=== PATIENT | female | born 1985 | race Caucasian/White ===

== ENCOUNTER 2020-04-10 09:58 | Emergency (ER) | payer MEDICAID, SELFPAY ==
[~2020-04-10] VITALS: Ht 154.9 cm; Wt 53.8 kg
[2020-04-10] MEDS ORDERED: PREN1TAB18 PO (10:23)
[2020-04-10 11:25] LABS: BASO # 0.1 10^3/uL (0.0-0.2); EOS # 0.3 10^3/uL (0.0-0.5); EOS % 2.8 % (0.0-3.0); HEMATOCRIT 40.2 % (36.0-47.0); HEMOGLOBIN 12.9 g/dl (12.0-15.5); LYMPH # 1.9 10^3/uL (1.5-5.0); LYMPH % 20.8 % (24.0-44.0); MEAN CORPUSCULAR HEMOGLOBIN 28.7 pg (27.0-33.0); MEAN CORPUSCULAR HGB CONC 32.1 g/dl (32.0-36.5); MEAN CORPUSCULAR VOLUME 89.5 fl (80.0-96.0); MONO # 0.6 10^3/uL (0.0-0.8); MONO % 6.7 % (0.0-5.0); NEUTROPHILS # 6.4 10^3/uL (1.5-8.5); NEUTROPHILS % 68.5 % (36.0-66.0); PLATELET COUNT, AUTOMATED 401 10^3/uL (150-450); RED BLOOD COUNT 4.49 10^6/uL (4.00-5.40); WHITE BLOOD COUNT 9.3 10^3/uL (4.0-10.0)
--- NOTE | 2020-04-10 12:06 | REP ---
INDICATION: vag bleeding, pelvic cramping 9 weeks. COMPARISON: None TECHNIQUE: Transvesical and transvaginal imaging FINDINGS: The uterus measures 8.5 x 5.9 x 6.2 cm. Within the endometrial cavity there is an oval-shaped collection of fluid with partial increased echoes surrounding it. Doppler of the structure shows no cardiac activity. There is no pole. The mean diameter of this structure is 13.7 mm. There is no free fluid in the pelvis. The right ovary measures 3.5 x 2.6 x 2.7 cm and is within normal limits. Left ovary measures 2.7 x 0.9 x 1.6 cm and is within normal limits. IMPRESSION: Possible gestational sac or possible blighted ovum as described above. The measurements are consistent with a 6 week 1 day gestational age. With no pole, yolk sac, or cardiac activity noted the diagnosis of cannot be made at this time. Follow-up is recommended. <Electronically signed by Josh Beevrly > 04/10/20 [id number]
[2020-04-10 12:21] LABS: BLOOD UREA NITROGEN 6 MG/DL (7-18); CALCIUM LEVEL 9.5 MG/DL (8.5-10.1); CARBON DIOXIDE LEVEL 26 MEQ/L (21-32); CHLORIDE LEVEL 103 MEQ/L (98-107); GLOMERULAR FILTRATION RATE > 60.0 (>60); GLUCOSE, FASTING 93 MG/DL (70-100); HCG, SERUM QUANTITATIVE 6079 MIU/ML; POTASSIUM SERUM 3.6 MEQ/L (3.5-5.1); SODIUM LEVEL 137 MEQ/L (136-145)
[2020-04-10 13:16] VITALS: BP 119/61
== END 2020-04-10 13:22 | disposition home or self-care (01) ==
LOC: M ED 09:58
DX: O20.0 Threatened abortion (principal); Z3A.01 Less than 8 weeks gestation of pregnancy

== ENCOUNTER 2020-04-11 19:27 | Emergency (ER) | payer MEDICAID, SELFPAY ==
[~2020-04-11] VITALS: Ht 154.9 cm; Wt 53.6 kg
[~2020-04-11 19:27] MED LIST: PREN1TAB18 PO
[2020-04-11 20:28] LABS: BASO # 0.1 10^3/uL (0.0-0.2); BASO % 0.6 % (0.0-1.0); EOS # 0.4 10^3/uL (0.0-0.5); EOS % 4.2 % (0.0-3.0); HEMATOCRIT 38.2 % (36.0-47.0); HEMOGLOBIN 12.1 g/dl (12.0-15.5); LYMPH # 2.8 10^3/uL (1.5-5.0); MEAN CORPUSCULAR HEMOGLOBIN 28.2 pg (27.0-33.0); MEAN CORPUSCULAR HGB CONC 31.7 g/dl (32.0-36.5); MONO # 0.9 10^3/uL (0.0-0.8); MONO % 8.7 % (0.0-5.0); NEUTROPHILS # 5.7 10^3/uL (1.5-8.5); NEUTROPHILS % 58.2 % (36.0-66.0); PLATELET COUNT, AUTOMATED 399 10^3/uL (150-450); RED BLOOD COUNT 4.29 10^6/uL (4.00-5.40); WHITE BLOOD COUNT 9.8 10^3/uL (4.0-10.0)
[2020-04-11 22:55] VITALS: BP 127/82
--- NOTE | 2020-04-12 12:39 | REP ---
INDICATION: passed products, concern for RPOC. Repeat dictation. Preliminary report is provided at the time of the exam by chris WHITE. COMPARISON: April 10, 2020.. TECHNIQUE: Transabdominal scanning. FINDINGS: Today's transabdominal imaging demonstrates an empty uterus. Its dimensions are 9.9 x 5.6 x 6.5 cm. Endometrial echo is 0.7 5 cm. No gestational sac is visible. The sac observed on the previous day can no longer be seen. This come cyst with complete AP. No free fluid is noted. No adnexal abnormality is seen. Normal ovaries are observed bilaterally. Right ovarian dimensions are 3.0 x 1.8 x 2.0. Left ovary measures 2.6 x 2.2 x 2.4 cm. Doppler flow is present in both ovaries. Resistive indices are 0.60 and 0.52 on the right and left respectively. IMPRESSION: Findings consistent with completed AB. Gestational sac visible on the previous day's study is no longer apparent. No evidence of retained products of conception. <Electronically signed by Andrew Fleming > 04/12/20 [id number]
== END 2020-04-11 22:58 | disposition home or self-care (01) ==
LOC: M ED 19:27
DX: O03.9 Complete or unspecified spontaneous abortion without complication (principal)

== ENCOUNTER → 2020-04-13 | Outpatient (CLI) | payer MEDICAID | LOC: M LAB 09:54 | PROVIDERS: ATTEND Physician Assistant | DX: N93.9 Abnormal uterine and vaginal bleeding, unspecified (principal) ==

== ENCOUNTER → 2020-04-20 | Outpatient (REF) | payer MEDICAID | LOC: M PLALAB 10:25 | PROVIDERS: ATTEND Advanced Practice Midwife | DX: O03.9 Complete or unspecified spontaneous abortion without complication (principal) ==

== ENCOUNTER → 2021-02-26 | Outpatient (CLI) | payer OTHER | LOC: M PLALAB 08:03 | PROVIDERS: ATTEND Obstetrics & Gynecology | DX: Z34.82 Encounter for supervision of other normal pregnancy, second trimester (principal); Z3A.00 Weeks of gestation of pregnancy not specified ==

== ENCOUNTER → 2021-04-16 | Outpatient (CLI) | payer OTHER | LOC: M WHC 07:01 | PROVIDERS: ATTEND Obstetrics & Gynecology | DX: Z36.89 Encounter for other specified antenatal screening (principal); Z3A.17 17 weeks gestation of pregnancy; Z3A.20 20 weeks gestation of pregnancy ==

== ENCOUNTER → 2021-06-05 | Outpatient (CLI) | payer OTHER ==
[2021-06-05 13:30] LABS: HEMATOCRIT 30.1 % (36.0-47.0); HEMOGLOBIN 9.7 g/dl (12.0-15.5); MEAN CORPUSCULAR HGB CONC 32.2 g/dl (32.0-36.5); MEAN CORPUSCULAR VOLUME 93.2 fl (80.0-96.0); PLATELET COUNT, AUTOMATED 395 10^3/uL (150-450); RED BLOOD COUNT 3.23 10^6/uL (4.00-5.40); WHITE BLOOD COUNT 11.2 10^3/uL (4.0-10.0)
[2021-06-05 15:05] LABS: GC DNA AMPLIFICATION NEGATIVE (NEGATIVE)
== END ==
LOC: M PLALAB 10:05
PROVIDERS: ATTEND Obstetrics & Gynecology
DX: Z36.89 Encounter for other specified antenatal screening (principal); Z3A.25 25 weeks gestation of pregnancy

== ENCOUNTER → 2021-06-11 | Outpatient (CLI) | payer OTHER | LOC: M LAB 08:24 | PROVIDERS: ATTEND Obstetrics & Gynecology | DX: O99.810 Abnormal glucose complicating pregnancy (principal) ==

== ENCOUNTER → 2021-08-10 | Outpatient (REF) | payer OTHER | LOC: M PLALAB 14:44 | PROVIDERS: ATTEND Advanced Practice Midwife | DX: Z36.85 Encounter for antenatal screening for Streptococcus B (principal) ==

== ENCOUNTER → 2023-11-24 | Outpatient (REF) | payer BC ==
[~2023-11-24] MED LIST changes: +IRON27TA2 PO
[2023-11-26 18:59] LABS: HPV APTIMA Not Detected (Not Detected)
== END ==
LOC: M PLALAB 12:38
PROVIDERS: ATTEND Obstetrics & Gynecology
DX: Z01.419 Encounter for gynecological examination (general) (routine) without abnormal findings (principal)